=== PATIENT | female | born 2000 | race African-American/Black ===

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

== ENCOUNTER 2022-12-05 20:01 | Emergency (ER) | payer MEDICAID ==
[~2022-12-05] VITALS: Ht 160 cm; Wt 68.0 kg
[2022-12-05 20:08] VITALS: O2SAT 100
[2022-12-05 20:45] VITALS: BP 122/72; PULSE 71; RESP 18; TEMP 98.3
[2022-12-05] MEDS ORDERED: ALBU6.7H15 INH (21:07)
[2022-12-05] MEDS ORDERED: P50 MT (21:07)
== END 2022-12-05 21:26 | disposition home or self-care (01) ==
LOC: ER 20:01
DX: J45.909 Unspecified asthma, uncomplicated (principal); F12.10 Cannabis abuse, uncomplicated
CPT/HCPCS: 99283